=== PATIENT | female | born 1950 | race Caucasian/White ===

== ENCOUNTER 2017-05-22 12:56 | Emergency (ER) | payer MEDICARE, OTHER ==
[~2017-05-22] VITALS: Ht 167.6 cm; Wt 76.2 kg
[2017-05-22] MEDS ORDERED: NEOMY/BACITRA/POLYMYXIN B OINT UD PACKET TP ONE ×3 (13:45→14:43)
[2017-05-22] MEDS ORDERED: HYDROCODONE/APAP 5-325MG TABLET PO ONE (13:45)
[2017-05-22] MEDS ORDERED: TDAP DIPH,PERTUSS,TET VAC/PF 0.5 ML DISP.SYRIN IM ONE ×2 (13:45→14:16)
[2017-05-22] MEDS ORDERED: NOREPINEPHRINE BITARTRATE 16 MG in IV DEXTROSE 5% 500 ML IV PRN (13:45)
[2017-05-22] MEDS ORDERED: HYDROCODONE/APAP 5-325MG TABLET ONE (14:16)
--- NOTE | 2017-05-22 14:54 | NUR ---
PT WAS EVALUATED BY DR PETTY. PT'S WOUNDS WERE CLEANED AND IRRIGATED WITH NS 0.9%. PT TOLERATED TO PROCEDURE AND MEDICATION WITHOUT COMPLICATIONS. GAUZE DRESSING WAS APPLIED ACCORDING TO DR PETTY ORDER. NO BLEEDING. PT WAS D/C TO HOME. D/C INSTRUCTIONS GIVEN TO THE PT.
[2017-05-22] MEDS ORDERED: CEPHALEXIN MONOHYDRATE 500 MG CAPSULE PO ONE (15:00)
[2017-05-22 15:01] VITALS: BP 139/68
[2017-05-22] MEDS ORDERED: CEPHALEXIN MONOHYDRATE 500 MG CAPSULE ONE (15:14)
--- NOTE | 2017-05-22 15:47 | NUR ---
jaimie here to take the pt home. Patient discharged to home in stable conditon. Written and verbal after care instructions given. Patient verbalizes understanding of instructions.
--- NOTE | 2017-05-22 15:48 | NUR ---
pt deneis any nausea, pain down to tolerable level. pt deneis any dizziness. pt ready to go home
== END 2017-05-22 15:50 | disposition home or self-care (01) ==
LOC: ER 12:59
DX: S80.812A Abrasion, left lower leg, initial encounter (principal); Z85.820 Personal history of malignant melanoma of skin; Z88.8 Allergy status to other drugs, medicaments and biological substances; W23.0XXA Caught, crushed, jammed, or pinched between moving objects, initial encounter; Y93.89 Activity, other specified; Y92.89 Other specified places as the place of occurrence of the external cause; Y99.8 Other external cause status
CPT/HCPCS: 90471; 90715; 99284; A4663